=== PATIENT | male | born 1985 | race African-American/Black ===

== ENCOUNTER 2019-11-02 12:10 | Emergency (ER) | payer SELFPAY ==
--- NOTE | 2019-11-02 12:21 | ER Document Report ---
HPI - HPI Patient complains to provider of: Neck pain Time Seen by Provider: 11/02/19 12:11 Onset: Yesterday Onset/Duration: Worse Quality of pain: Achy Pain Level: 4 Context: Patient complains of chronic cystic lesion to the posterior neck area that he has had since he was a child. Patient states area became increasingly tender since yesterday. Patient denies any fever. Patient denies any change in appearance of the lesion. Associated Symptoms: Other - Neck tenderness. denies: Fever Exacerbated by: Movement Relieved by: Denies Similar symptoms previously: Yes Recently seen / treated by doctor: No - ROS ROS below otherwise negative: Yes Systems Reviewed and Negative: Yes All other systems reviewed and negative - CONSTITUTIONAL Constitutional: DENIES: Fever - GASTROINTESTINAL Gastrointestinal: DENIES: Nausea - MUSCULOSKELETAL Musculoskeletal: REPORTS: Neck Pain - DERM Skin Color: Normal Skin Problems: None Past Medical History - General Information source: Patient - Social History Smoking Status: Current Every Day Smoker Frequency of alcohol use: None Drug Abuse: None Occupation: [employer] Lives with: Family Family History: Reviewed & Not Pertinent Psychiatric Medical History: Reports: Hx Depression Surgical Hx: Negative - Immunizations Hx Diphtheria, Pertussis, Tetanus Vaccination: Yes - 2010 [facility] Provider Document - CONSTITUTIONAL Agree With Documented VS: Yes Exam Limitations: No Limitations General Appearance: WD/WN, No Apparent Distress - HEENT HEENT: Atraumatic, Normocephalic - NECK Neck: Supple Notes: Patient with large 5 cm diameter mobile cystic-like lesion to the posterior aspect of the neck, no overlying erythema, no meningismus. - RESPIRATORY Respiratory: No Respiratory Distress - BACK Back: Normal Inspection - MUSCULOSKELETAL/EXTREMETIES Musculoskeletal/Extremeties: MAEW - NEURO Level of Consciousness: Awake, Alert, Appropriate Motor/Sensory: No Motor Deficit - DERM Integumentary: Warm, Dry, No Rash Course - Re-evaluation Re-evalutation: 11/02/19 12:25 Patient with large cystic lesion to the posterior neck area. Patient states lesion has been there for 20 years. Patient states that he missed work and needs a note for his employer at this time. Discharge - Discharge Clinical Impression: Neck pain, Cyst of neck Condition: Stable Disposition: HOME, SELF-CARE Instructions: Anti-Inflammatory Medication ([facility]) Additional Instructions: Return immediately for any new or worsening symptoms Followup with your primary care provider, call tomorrow to make a followup appointment Follow-up with a general surgeon for excision of cystic lesion to the neck. Prescriptions: Naproxen [Naprosyn 250 Nmg Tablet] 1 tab PO BID #14 tablet Forms: Return to Work Referrals: [facility] [Provider Group] - Follow up in 1 week
[2019-11-02 12:26] VITALS: BP 167/93
== END 2019-11-02 12:29 | disposition home or self-care (01) ==
LOC: ER 12:10
DX: M54.2 Cervicalgia (principal); L72.8 Other follicular cysts of the skin and subcutaneous tissue; F17.200 Nicotine dependence, unspecified, uncomplicated
CPT/HCPCS: 99283

== ENCOUNTER 2020-01-06 04:11 | Emergency (ER) | payer SELFPAY ==
[2020-01-06 04:38] VITALS: BP 159/92
[2020-01-06] MEDS ORDERED: PENICILLIN V POTASSIUM 500 MG TABLET PO ONE (06:59)
--- NOTE | 2020-01-06 07:02 | ER Document Report ---
ED Oral Problem - General Chief Complaint: Toothache Stated Complaint: TOOTH PAIN Time Seen by Provider: 01/06/20 06:52 Notes: CHIEF COMPLAINT: Intermittent dental pain for weeks HPI: 34-year-old male presenting for intermittent dental pain to the right face over the last several weeks worse last night. Took no medications for his symptoms. No fever no facial swelling ROS: See HPI - all other systems were reviewed and are otherwise negative Constitutional: no fever Eyes: no drainage, no blurred vision ENT: no runny nose, no sore throat, positive dental pain Cardiovascular: no chest pain Resp: no SOB, no cough Integumentary: no rash Allergy: no hives MEDICATIONS: I agree with the patient medications as charted by the RN. ALLERGIES: I agree with the allergies as charted by the RN. PAST MEDICAL HISTORY/PAST SURGICAL HISTORY: Reviewed and agree as charted by RN. SOCIAL HISTORY: Reviewed and agree as charted by RN. FAMILY HISTORY: No significant familial comorbid conditions directly related to patient complaint EXAM: Reviewed vital signs as charted by RN. CONSTITUTIONAL: Alert and oriented and responds appropriately to questions. Well-appearing; well-nourished, no acute distress HEAD: Normocephalic; atraumatic EYES: PERRL; Conjunctivae clear, sclerae non-icteric ENT: normal nose; no rhinorrhea; moist mucous membranes; pharynx without lesions noted, no uvula edema or deviation, no tonsillar hypertrophy, phonation normal. Patient with erosion of the right lower second premolar and first molar to the gingiva with some edema no sublingual swelling. No trismus. No facial swelling. Phonation normal NECK: Supple without meningismus; non-tender; no cervical lymphadenopathy, no masses CARD: Capillary refill less than 3 seconds; symmetric distal pulses RESP: Normal chest excursion without splinting or tachypnea ABD/GI: non-distended BACK: The back appears normal EXT: Normal ROM in all joints; no cyanosis, no effusions, no edema SKIN: Normal color for age and race; warm; dry; good turgor NEURO: Moves all extremities equally; Motor and sensory function intact PSYCH: The patient's mood and manner are appropriate. Grooming and personal hygiene are appropriate. MDM: 34-year-old male with dental caries with dental pain will place on a course of antibiotics anti-inflammatories referral to dental - Related Data Allergies/Adverse Reactions: No Known Allergies Allergy (Verified 01/06/20 04:53) Past Medical History - Social History Smoking Status: Current Every Day Smoker Frequency of alcohol use: None Drug Abuse: None Family History: Reviewed & Not Pertinent Patient has homicidal ideation: No - Past Medical History Cardiac Medical History: Reports: Hx Hypertension Psychiatric Medical History: Reports: Hx Depression - Immunizations Hx Diphtheria, Pertussis, Tetanus Vaccination: Yes - 2010 Physical Exam - Vital signs Vitals: Temp Pulse Resp BP Pulse Ox 99.0 F 101 H 18 159/92 H 98 01/06/20 04:32 01/06/20 04:32 01/06/20 04:32 01/06/20 04:32 01/06/20 04:32 Course - Vital Signs Vital signs: Temp Pulse Resp BP Pulse Ox 99.0 F 101 H 18 159/92 H 98 01/06/20 04:54 01/06/20 04:32 01/06/20 04:32 01/06/20 04:32 01/06/20 04:32 Discharge - Discharge Clinical Impression: Pain due to dental caries Condition: Stable Disposition: HOME, SELF-CARE Additional Instructions: 1. Take the medications as prescribed, if you were written antibiotics make sure that you finish them. 2. You need to follow up with a dentist for definitive evaluation and care of your dental problems 3. return to the ED for any facial swelling, fever > 101, difficulty swallowing or opening the mouth. 4. You may attempt to follow up with the [facility] for further care as well as through the dental list provided. 5. you may want to consider a dental discount plan such as [email or web address].com to help with costs of dental care as you do not have dental insurance Prescriptions: Penicillin V Potassium [Penicillin Vk 500 mg Tablet] 500 mg PO BID #20 tablet Diclofenac Sodium [Voltaren 50 Mg Tablet.] 50 mg PO BID #20 tablet.
== END 2020-01-06 07:42 | disposition home or self-care (01) ==
LOC: ER 04:11
DX: K02.9 Dental caries, unspecified (principal); K08.9 Disorder of teeth and supporting structures, unspecified; F17.200 Nicotine dependence, unspecified, uncomplicated; I10 Essential (primary) hypertension
CPT/HCPCS: 99282

== ENCOUNTER 2020-01-18 02:47 | Emergency (ER) | payer SELFPAY ==
[2020-01-18] MEDS ORDERED: HYDROMORPHONE HCL INJ/PF 2 MG/ML AMPULE IM ONE (04:01)
[2020-01-18] MEDS ORDERED: PROMETHAZINE HCL 25 MG TABLET PO ONE (04:02)
[2020-01-18] MEDS ORDERED: CLINDAMYCIN HCL 150 MG CAPSULE PO ONE (04:02)
--- NOTE | 2020-01-18 04:12 | ER Document Report ---
HPI - HPI Time Seen by Provider: 01/18/20 03:50 Pain Level: 5 Context: Patient is a 34-year-old male that comes to the emergency department for chief complaint of dental pain in the right upper jawline area. He states it feels like his face is starting to swell on that side as well. Patient was already evaluated here on 01/06/2020 and prescribed penicillin and diclofenac, he states he has been taking it annually completed the penicillin. He denies sore throat, neck pain, fever, headache, or any other complaints. Past Medical History - General Information source: Patient - Social History Smoking Status: Current Every Day Smoker Frequency of alcohol use: None Drug Abuse: None Lives with: Family Family History: Reviewed & Not Pertinent Patient has homicidal ideation: No - Past Medical History Cardiac Medical History: Reports: Hx Hypertension Psychiatric Medical History: Reports: Hx Depression - Immunizations Hx Diphtheria, Pertussis, Tetanus Vaccination: Yes - 2010 [facility] Provider Document - CONSTITUTIONAL General Appearance: WD/WN. negative: No Apparent Distress - Patient restless and somewhat uncomfortable in appearance, no severe distress - HEENT HEENT: Atraumatic, Normocephalic, PERRLA. negative: Pharyngeal Exudate, Pharyngeal Tenderness, Pharyngeal Erythema, Tympanic Membrane Red, Tympanic Membrane Bulging Mouth Diagram: 1 - Tenderness, erythema, slight swelling of the gumline on the outside with slight yellowish discoloration. - NECK Neck: Normal Inspection - RESPIRATORY Respiratory: Breath Sounds Normal, No Respiratory Distress - CARDIOVASCULAR Cardiovascular: Regular Rate, Regular Rhythm - GI/ABDOMEN Gastrointestinal: Abdomen Soft, Abdomen Non-Tender. negative: Abdomen Tender - BACK Back: Normal Inspection - MUSCULOSKELETAL/EXTREMETIES Musculoskeletal/Extremeties: MAEW, FROM, Non-Tender - NEURO Level of Consciousness: Awake, Alert, Appropriate - DERM Integumentary: Warm, Dry, No Rash Course - Re-evaluation Re-evalutation: Patient with dental infection, no swelling of the face. Right upper gumline swollen, slightly yellowish discoloration, no fluctuant head. Discussed with patient. Discussed with Dr. Perry. Decision was made to test the area with a tiny needle to see if there was any fluctuance or drainage, this was performed (small needle stick to the swollen area) but no fluctuant drainage was expressed. Small amount of bleeding occurred which stopped quickly. Patient was treated with clindamycin, stopping the penicillin, discussed dental clinic follow-up, return cautions. Patient states understanding and agreement with plan. - Vital Signs Vital signs: Temp Pulse Resp BP Pulse Ox 98.3 F 93 18 169/104 H 97 01/18/20 02:55 01/18/20 02:54 01/18/20 02:54 01/18/20 02:54 01/18/20 02:54 Discharge - Discharge Clinical Impression: Pain, dental, Dental infection Condition: Stable Disposition: HOME, SELF-CARE Additional Instructions: No abscess is seen on your evaluation, but you do have a dental infection. Stop the penicillin, take the clindamycin as prescribed to completion. You can continue the diclofenac, you can also take the [facility] along with this if needed for severe pain. Follow-up with the dentist referral listed below or this will continue to occur. Return if you worsen including severe worsening swelling or pain, fever, or any other concerning or worsening symptoms. [facility] [address], [address] Prescriptions: Clindamycin HCl [Cleocin 150 mg Capsule] 150 mg PO Q6 #56 capsule Forms: Return to Work, Elevated Blood Pressure
[2020-01-18] MEDS ORDERED: HYDROCODONE/ACETAMINOPHEN 5-325 MG (6 TAB/ER DISP) PO PRN (04:47)
[2020-01-18 05:07] VITALS: BP 155/106
== END 2020-01-18 05:07 | disposition home or self-care (01) ==
LOC: ER 02:47
DX: K04.7 Periapical abscess without sinus (principal); K08.9 Disorder of teeth and supporting structures, unspecified; F17.200 Nicotine dependence, unspecified, uncomplicated; I10 Essential (primary) hypertension
CPT/HCPCS: 99282; 96372; J1170

== ENCOUNTER 2020-06-06 17:01 | Emergency (ER) | payer SELFPAY ==
--- NOTE | 2020-06-06 18:20 | ER Document Report ---
ED Medical Screen (RME) - General Stated Complaint: POSSIBLE ABSESS ON BACK OF NECK Time Seen by Provider: 06/06/20 18:12 Notes: Patient is a 34-year-old male presents emergency department with a chief complaint of neck mass. Patient reports over the past 13 years he has had a mass that has developed to the posterior neck. Patient reports years ago he did have this drained which did help with his discomfort but was told that it could potentially come back. Denies drainage. Denies fever. Denies difficulty moving his neck. - Related Data Allergies/Adverse Reactions: No Known Allergies Allergy (Verified 01/06/20 04:53) Past Medical History - Past Medical History Cardiac Medical History: Reports: Hx Hypertension Psychiatric Medical History: Reports: Hx Depression - Immunizations Hx Diphtheria, Pertussis, Tetanus Vaccination: Yes - 2010 Physical Exam - Vital signs Vitals: Temp Pulse Resp BP Pulse Ox 98.4 F 106 H 16 143/99 H 100 06/06/20 17:24 06/06/20 17:24 06/06/20 17:24 06/06/20 17:24 06/06/20 17:24 Course - Re-evaluation Re-evalutation: 06/06/20 18:20 Patient has a large palpable soft mass noted to the posterior neck. I have ordered an ultrasound. I have greeted and performed a rapid initial assessment of this patient. A comprehensive ED assessment and evaluation of the patient, analysis of test results and completion of the medical decision making process will be conducted by additional ED providers. - Vital Signs Vital signs: Temp Pulse Resp BP Pulse Ox 98.4 F 106 H 16 143/99 H 100 06/06/20 17:24 06/06/20 17:24 06/06/20 17:24 06/06/20 17:24 06/06/20 17:24
--- NOTE | 2020-06-06 19:24 | RADIOLOGY REPORT (SQ) ---
EXAM DESCRIPTION: U/S THYROID/SFT TISS HD NECK IMAGES COMPLETED DATE/TIME: 06/06/2020 6:52 pm REASON FOR STUDY: Mass to posterior neck COMPARISON: None. TECHNIQUE: Dynamic and static beckwith-scale images acquired of the thyroid gland. Selected additional c olor/power Doppler images recorded. All images stored to PACS. LIMITATIONS: None. FINDINGS: Sonographic imaging in the area of concern in the posterior neck shows a complex area jo uring 5 x 4.1 x 2.4 cm containing debris. IMPRESSION: Complex mass measuring 5 x 4.1 x 2.4 cm containing debris. Etiology uncertain. Could r epresent a very large sebaceous cyst. Sebaceous cyst abscess. Mature hematoma. TECHNICAL DOCUMENTATION: JOB ID: [id number] 2010 [employer]- All Rights Reserved Reading location - IP/workstation name: [email or web address]
[2020-06-07] MEDS ORDERED: LIDOCAINE 1%/EPINEPHRINE INJ 20 ML VIAL INJ ONE (01:55)
--- NOTE | 2020-06-07 02:01 | ER Document Report ---
ED General - General Stated Complaint: POSSIBLE ABSESS ON BACK OF NECK Time Seen by Provider: 06/06/20 18:12 Notes: 34-year-old female history of hypertension, chronic posterior neck mass previously drained years ago presents with worsening pain in size of posterior neck mass. Patient otherwise feels well, denies any fever, vomiting, trauma, bleeding diatheses, anticoagulation, symptoms elsewhere - Related Data Allergies/Adverse Reactions: No Known Allergies Allergy (Verified 01/06/20 04:53) Past Medical History - General Information source: Patient - Social History Smoking Status: Unknown if Ever Smoked Family History: Reviewed & Not Pertinent - Past Medical History Cardiac Medical History: Reports: Hx Hypertension Psychiatric Medical History: Reports: Hx Depression - Immunizations Hx Diphtheria, Pertussis, Tetanus Vaccination: Yes - 2010 Review of Systems - Review of Systems Notes: REVIEW OF SYSTEMS: CONSTITUTIONAL : Denies fever, chills, or sweats. EENT: Denies recent cold/sinus symptoms, denies throat pain CARDIOVASCULAR: Denies chest pain, JÚNIOR RESPIRATORY: Denies cough, denies shortness of breath. GASTROINTESTINAL: Denies abdominal pain, nausea/vomiting. GENITOURINARY: Denies difficulty urinating, painful urination. MUSCULOSKELETAL: Denies neck pain, back pain. SKIN: Denies rash + skin lesions. HEMATOLOGIC : Denies easy bruising or bleeding. NEUROLOGICAL: Denies nuchal rigidity, denies change in gait. PSYCHIATRIC: Denies anxiety or stress or depression. Physical Exam - Vital signs Vitals: Temp Pulse Resp BP Pulse Ox 98.4 F 106 H 16 143/99 H 100 06/06/20 17:24 06/06/20 17:24 06/06/20 17:24 06/06/20 17:24 06/06/20 17:24 - Notes Notes: PHYSICAL EXAMINATION: GENERAL: Well-appearing, well-nourished and in no acute distress. HEAD: Atraumatic, normocephalic, approximately 10 x 6 cm posterior midline neck mass with scar from previous drainage, no discomfort on palpating mass, no overlying skin abnormalities EYES: Pupils equal round and appropriate constriction, sclera anicteric, conjunctiva are normal. ENT: nares patent, moist mucous membranes. NECK: Normal range of motion, supple without lymphadenopathy LUNGS: Normal respiratory rate and effort, speaking in full sentences HEART: Regular rate, no JVD EXTREMITIES: Normal range of motion, no pitting or edema. No cyanosis. NEUROLOGICAL: Awake, alert, conversing appropriately, moves all extremities spontaneously. PSYCH: Normal mood, normal affect. SKIN: Warm, Dry, normal turgor, no erythema, no discharge, no induration Course - Re-evaluation Re-evalutation: 06/07/20 01:59 Worsening in size of chronic posterior neck mass, likely sebaceous gland cyst versus abscess, no overlying cellulitis, no systemic symptoms, no risk factors for compromise complicated course, no immunocompromise history. Will perform I&D and discharge with surgery and dermatology follow-up. Patient initially tachycardic mildly on triage vitals, likely secondary to exertion before treating triage vitals since it normalized without any intervention on repeat vitals and patient is completely asymptomatic. 06/07/20 02:44 Performed I&D which resolved mass, patient states he feels greatly improved, no signs of infection, no indication for antibiotics, patient ready for discharge with wound care instructions given and follow-up. Patient given extensive return to ED precautions which he demonstrated understanding of, patient ready for discharge. - Vital Signs Vital signs: Temp Pulse Resp BP Pulse Ox 98.1 F 83 20 133/91 H 97 06/07/20 00:09 06/07/20 00:09 06/07/20 00:09 06/07/20 00:09 06/07/20 00:09 Procedures - Incision and Drainage Posterior Neck Time completed: 02:40 Type: Complex Anesthetic type: 1% Lidocaine w/epi mL's of anesthetic: 5 Blade size: 11 I&D procedure: Shurclens applied Incision Method: Incision made by scalpel Amount/type of drainage: 100 ml of clear/beckwith low viscosity fluid with white debris Notes: 06/07/20 02:42 Unit performed blunt dissection to break up loculations, approximately 10 x 6 cm cyst Discharge - Discharge Clinical Impression: Neck mass Disposition: HOME, SELF-CARE Additional Instructions: You can schedule follow-up with a surgeon or electric truck operator to further investigate this mass. Although it is unlikely cancerous given the amount of time that you have had it, it is still possible and it is important that you discuss with the specialist to see whether you need biopsies or other intervention. If you have any worsening pain, fever, skin redness, pus, spreading pain, neck stiffness, or any other worsening or alarming symptoms return to the emergency department immediately. Keep covered with clean dressing, change twice daily until healed. Referrals: MARCIAL ALTMAN DO [ACTIVE STAFF] - Follow up as needed MESHA BOND MD [ACTIVE STAFF] - Follow up as needed
[2020-06-07 03:47] VITALS: BP 134/90
== END 2020-06-07 03:45 | disposition home or self-care (01) ==
LOC: ER 17:01
PROC: 0H94XZZ Drainage of Neck Skin, External Approach (ICD-10-PCS; principal; 2020-06-06)
DX: L02.11 Cutaneous abscess of neck (principal); I10 Essential (primary) hypertension
CPT/HCPCS: 99284; 76536; 10060; J3490